=== PATIENT | male | born 1995 | race Caucasian/White ===

== ENCOUNTER 2017-03-07 19:44 | Emergency (ER) | payer MEDICAID ==
[~2017-03-07] VITALS: Ht 177.8 cm; Wt 63.5 kg
[2017-03-07] MEDS ORDERED: AMOX500T2 PO (20:02)
--- NOTE | 2017-03-07 20:11 | NUR ---
DR URIAS INTO EVAL PATIENT
[2017-03-07] MEDS ORDERED: IBUPROFEN 400 MG TABLET PO ONE (20:15)
--- NOTE | 2017-03-07 20:15 | NUR ---
PATIENT PLACED ON HARD COLLAR DR URIAS ORDERED
--- NOTE | 2017-03-07 20:20 | NUR ---
PATIENT OUT OF UNIT FOR CT SCAN VIA GURNY
[2017-03-07] MEDS ORDERED: IBUPROFEN 400 MG TABLET ONE (20:30)
--- NOTE | 2017-03-07 20:52 | NUR ---
Patient discharged to home in stable conditon WITH NO DISTRESS NOTED. Written and verbal after care instructions given. Patient verbalizes understanding of instructions. WALKED OUT OF ER WITH STEADY GAIT
[2017-03-07 20:53] VITALS: BP 122/77
== END 2017-03-07 20:53 | disposition home or self-care (01) ==
LOC: ER 19:44
DX: S13.4XXA Sprain of ligaments of cervical spine, initial encounter (principal); F17.200 Nicotine dependence, unspecified, uncomplicated; Z71.6 Tobacco abuse counseling; V49.9XXA Car occupant (driver) (passenger) injured in unspecified traffic accident, initial encounter; Y93.89 Activity, other specified; Y99.8 Other external cause status; Y92.89 Other specified places as the place of occurrence of the external cause
CPT/HCPCS: 72125; A4663

== ENCOUNTER 2023-06-12 11:06 | Emergency (ER) | payer MEDICAID ==
[~2023-06-12] VITALS: Ht 180.3 cm; Wt 68.0 kg
[~2023-06-12 11:06] MED LIST: AMOX500T2 PO
[2023-06-12 12:00] LABS: BASOPHILS # (AUTO) 0.1 K/UL (0.0-0.2); BASOPHILS % (AUTO) 0.9 % (0.0-2.0); EOSINOPHILS # (AUTO) 0.2 K/uL (0.0-0.7); EOSINOPHILS % (AUTO) 1.7 % (0.0-7.0); HEMATOCRIT 42.9 % (36.7-47.1); LYMPHOCYTES # (AUTO) 2.9 K/uL (0.8-4.8); LYMPHOCYTES % (AUTO) 20.8 % (20.5-51.5); MEAN CORPUSCULAR HEMOGLOBIN 29.9 uug (23.8-33.4); MEAN CORPUSCULAR HGB CONC 33 g/dL (32.5-36.3); MEAN CORPUSCULAR VOLUME 91.4 fL (73.0-96.2); MONOCYTES # (AUTO) 1.4 K/uL (0.1-1.30); MONOCYTES % (AUTO) 10.1 % (0.0-11.0); NEUTROPHILS # (AUTO) 9.2 K/uL (1.8-8.9); NEUTROPHILS % (AUTO) 66.5 % (38.5-71.5); PLATELET COUNT (AUTO) 407 K/uL (152-348); RED BLOOD CELL COUNT(AUTO) 4.69 MIL/uL (4.06-5.63); RED CELL DISTRIBUTION WIDTH 14.2 % (12.1-16.2); WHITE BLOOD COUNT (AUTO) 13.9 K/uL (3.6-10.2)
[2023-06-12 12:16] LABS: CALCIUM 10.5 mg/dL (8.5-10.1); CREATININE 0.8 mg/dL (0.6-1.3); POTASSIUM 4.9 mmol/L (3.5-5.1)
[2023-06-12 12:17] LABS: DIFFERENTIAL COMMENT 1
[2023-06-12] MEDS ORDERED: DOXY100C5 PO (12:20)
[2023-06-12] MEDS ORDERED: IBUP-1955 PO (12:20)
[2023-06-12 12:22] LABS: ALBUMIN 3.6 g/dL (3.4-5.0); BILIRUBIN,DIRECT 0.1 mg/dL (0.0-0.2); BILIRUBIN,TOTAL 0.4 mg/dL (0.2-1.0); TOTAL PROTEIN, SERUM 8.4 g/dL (6.4-8.2)
[2023-06-12 12:40] LABS: *BILIRUBIN,URIN NEGATIVE (NEGATIVE); *BLOOD, URINE NEGATIVE (NEGATIVE); *CLARITY,URINE SLIGHTLY CLOUDY (CLEAR); *COLOR,URINE YELLOW (YELLOW); *KETONES,URINE NEGATIVE (NEGATIVE); *PROTEIN,URINE 2+ (NEGATIVE); *UROBILINOGEN,URINE 0.2 E.U./dl (NORMAL); LEUKOCYTE ESTERASE ,URINE TRACE (NEGATIVE); NITRITE, URINE NEGATIVE (NEGATIVE); UGLUCOSE NEGATIVE (NEGATIVE)
[2023-06-12 12:54] LABS: RBC,URINE NONE SEEN /HPF (0-3)
[2023-06-12 12:55] LABS: BACTERIA,URINE MANY /HPF (NONE SEEN); SPERM,URINE FEW /HPF (NONE SEEN); SQUAMOUS EPITHELIAL CELL,UR FEW /HPF (NONE SEEN); URINE AMORPHOUS URATE MODERATE /HPF
[2023-06-12 13:01] LABS: HIV-1 p24 ANTIGEN NON REACTIVE (NONREACTIVE); HIV-1/2 ANTIBODY NON REACTIVE (NONREACTIVE)
[2023-06-12 13:41] VITALS: BP 115/66; TEMP 98; O2SAT 100
[2023-06-13 08:06] LABS: HEPATITIS B CORE AB, TOTAL Negative (Negative); HEPATITIS B SURFACE AB, QUAL Reactive (.); HEPATITIS C VIRUS ANTIBODY Non Reactive (Non Reactive)
[2023-06-14 14:06] LABS: *CHLAMYDIA NAA Positive (Negative); *GC NAA Negative (Negative)
[2023-06-14 15:06] LABS: *TRIC.VAG. NAA Negative (Negative)
== END 2023-06-12 13:41 | disposition home or self-care (01) ==
LOC: ER 11:06
DX: A64 Unspecified sexually transmitted disease (principal); R59.0 Localized enlarged lymph nodes; F17.210 Nicotine dependence, cigarettes, uncomplicated; Z79.1 Long term (current) use of non-steroidal anti-inflammatories (NSAID); Z79.2 Long term (current) use of antibiotics
CPT/HCPCS: 36415; 83690; 85025; 86592; 86704; 86706; 86803; 87491; 87806; A4663

== ENCOUNTER 2024-01-26 15:36 | Emergency (ER) | payer MEDICAID, OTHER ==
[~2024-01-26] VITALS: Ht 180.3 cm; Wt 80.7 kg
[~2024-01-26 15:36] MED LIST changes: +DOXY100C5 PO; +IBUP-1955 PO
[2024-01-26] MEDS ORDERED: SULF1TAB48 PO (16:13)
[2024-01-26 16:40] VITALS: BP 125/81; TEMP 98.2; O2SAT 97
== END 2024-01-26 16:41 | disposition home or self-care (01) ==
LOC: ER 15:37
DX: L01.00 Impetigo, unspecified (principal); B95.61 Methicillin susceptible Staphylococcus aureus infection as the cause of diseases classified elsewhere; F17.200 Nicotine dependence, unspecified, uncomplicated; Z79.899 Other long term (current) drug therapy; Z91.013 Allergy to seafood
CPT/HCPCS: A4606; A4663

== ENCOUNTER 2024-03-04 09:17 | Emergency (ER) | payer MEDICAID, OTHER ==
[~2024-03-04] VITALS: Ht 180.3 cm; Wt 83.9 kg
[~2024-03-04 09:17] MED LIST changes: +SULF1TAB48 PO
[2024-03-04] MEDS ORDERED: CEFTRIAXONE 500 MG VIAL ONE (09:44)
[2024-03-04] MEDS: CEFTRIAXONE 500 MG VIAL IM ONE (09:48)
[2024-03-04 10:22] VITALS: BP 120/70; TEMP 98; O2SAT 99
== END 2024-03-04 10:22 | disposition home or self-care (01) ==
LOC: ER 09:17
DX: L73.9 Follicular disorder, unspecified (principal); F17.210 Nicotine dependence, cigarettes, uncomplicated; Z91.018 Allergy to other foods; Z79.2 Long term (current) use of antibiotics; Z79.1 Long term (current) use of non-steroidal anti-inflammatories (NSAID); Z79.899 Other long term (current) drug therapy
CPT/HCPCS: 99283; 96372; J0696; A4606; A4663